=== PATIENT | female | born 1985 | race Caucasian/White ===

== ENCOUNTER 2016-10-20 06:06 | Emergency (ER) | payer OTHER ==
[2016-10-20 06:09] VITALS: O2SAT 99
[2016-10-20] MEDS ORDERED: MORPHINE SULFATE 2 MG INJ IV ONE (06:37)
[2016-10-20] MEDS ORDERED: Zofran 4 MG/2 ML VIAL IV ONE (06:38)
[2016-10-20] MEDS ORDERED: Sodium Chloride 0.9% 1000 ML 1,000 ML IV SCH (06:45)
--- NOTE | 2016-10-20 06:45 | ERPHSYRPT ---
- History of Present Illness Historian: patient Exam Limitations: no limitations Patient Subjective Stated Complaint: PT C/O EPIGASTRIC ABD PAIN, RATES 7/10. STATES SHES ALSO BEEN HAVING DIARRHEA AND HAS VOMITED AT HOME. Triage Nursing Assessment: PT ALERT AND ORIENTED, ANSWERS QUESTIONS APPROP. PT AMBULATORY WITH STEADY GAIT NOTED. SKIN PINK WARM AND DRY. ABD SOFT AND TENDER TO PALPATION. BOWEL SOUNDS PRESENT IN ALL 4 QUADS, PT REPORTS PASSING FLATUS. PT REPORTS NORMAL BM AT 1500 YESTERDAY THEN TOOK 2 DULCOLAX AT APPROX 2100 AND HAS HAD 4-5 DIARRHEA STOOLS SINCE. Timing/Duration: yesterday Activities at Onset: none Quality: sharpness Abdominal Pain Onset Location: epigastric, periumbilical Pain Radiation: epigastric Severity of Pain-Max: severe Severity of Pain-Current: moderate Modifying Factors: Improves With: nothing Associated Symptoms: diarrhea, nausea, vomiting Previous symptoms: no prior history Hx Tetanus, Diphtheria Vaccination/Date Given: Yes Hx Influenza Vaccination/Date Given: No Hx Pneumococcal Vaccination/Date Given: No Immunizations Up to Date: Yes <SURENDRA MICHELLE - Last Filed: 10/20/16 06:40> <SLAVA POWERS - Last Filed: 10/20/16 08:10> - History of Present Illness Time Seen by Provider: 10/20/16 06:30 Physician History: 31 y/o female comes to the ER with complaints of periumbilical and epigastric abdominal pain that started last night at 8 pm. Pt describes the pain as sharp, constant, as high as 8/10, currently 4/10, worst with sitting up and not relieved by dulcolax. Pt admits to having 1 episode of nausea and vomiting as well as 5 episodes of diarrhea. Pt has had issues with constipation in the past and has not had a good BM in 3 days. Last meal was at 6 pm last night from a steak house. Pt denies any fever, chills, chest pain, back pain, dyuria, polyuria or hematuria. (SURENDRA MICHELLE) Allergies/Adverse Reactions: No Known Drug Allergies Allergy (Unverified 10/20/16 06:21) Home Medications: No Home Meds 1 ea UD 10/20/16 [History] - Review of Systems Constitutional: No Fever, No Chills Eyes: No Symptoms Ears, Nose, & Throat: No Symptoms Respiratory: No Cough, No Dyspnea Cardiac: No Chest Pain, No Edema, No Syncope Abdominal/Gastrointestinal: Abdominal Pain, Nausea, Vomiting, Diarrhea Genitourinary Symptoms: No Dysuria, No Frequency, No Hematuria Musculoskeletal: No Back Pain, No Neck Pain Skin: No Rash Neurological: No Dizziness, No Focal Weakness, No Sensory Changes Psychological: No Symptoms Endocrine: No Symptoms All Other Systems: Reviewed and Negative <SURENDRA MICHELLE - Last Filed: 10/20/16 06:40> - Past Medical History Other Medical History: FADI ROBAN SYNDROME - Past Surgical History Past Surgical History: Yes Other Surgical History: CLEFT PALATE REPAIR AND CHIN IMPLANT - Social History Smoking Status: Never smoker Exposure to second hand smoke: No Drug Use: none Patient Lives Alone: No - Female History Hx Last Menstrual Period: CURRENT <MICHELLESURENDRA - Last Filed: 10/20/16 06:40> - Physical Exam General Appearance: mild distress, alert Eye Exam: PERRL/EOMI, eyes nml inspection Ears, Nose, Throat Exam: normal ENT inspection, pharynx normal, moist mucous membranes Neck Exam: normal inspection, non-tender, supple, full range of motion Respiratory Exam: normal breath sounds, lungs clear, No respiratory distress Cardiovascular Exam: regular rate/rhythm, normal heart sounds Gastrointestinal/Abdomen Exam: soft, normal bowel sounds, tenderness, distention , No mass Back Exam: normal inspection, normal range of motion, No CVA tenderness, No vertebral tenderness Extremity Exam: normal inspection, normal range of motion, pelvis stable Neurologic Exam: alert, oriented x 3, cooperative, normal mood/affect, nml cerebellar function, sensation nml, No motor deficits Skin Exam: normal color, warm, dry SpO2: 99 Oxygen Delivery: Room Air <VIVIANASURENDRA - Last Filed: 10/20/16 06:40> - CT Exams Abdomen/Pelvis CT Interpretation: Normal Appendix, No appendicitis, Other (addenitis) <SLAVA POWERS - Last Filed: 10/20/16 08:10> Ordered Tests: Active Orders 24 hr Category Date Time Status IV Insertion STAT Care 10/20/16 06:39 Active ABDOMEN AND PELVIS W CONTRAST [CT] Stat Exams 10/20/16 06:37 Taken AMYLASE Stat Lab 10/20/16 06:40 Completed CBC W DIFF Stat Lab 10/20/16 06:40 Completed CMP Stat Lab 10/20/16 06:40 Completed HCG,QUALITATIVE URINE Stat Lab 10/20/16 06:54 Completed LIPASE Stat Lab 10/20/16 06:40 Completed UA W/ MICROSCOPIC Stat Lab 10/20/16 06:54 Completed UA W/RFX UR CULTURE Stat Lab 10/20/16 06:54 Completed Medication Summary Generic Name Dose Route Start Last Admin Trade Name Freq PRN Reason Stop Dose Admin Sodium Chloride 1,000 mls @ 200 mls/hr 10/20/16 06:45 10/20/16 07:00 Sodium Chloride 0.9% 1000 Ml IV 11/19/16 06:44 200 mls/hr .Q5H MARIO Administration Discontinued Medications Generic Name Dose Route Start Last Admin Trade Name Freq PRN Reason Stop Dose Admin Sodium Chloride Confirm 10/20/16 06:58 Sodium Chloride 0.9% 1000 Ml Administered 10/20/16 06:59 Dose 1,000 mls @ ud .ROUTE .STK-MED ONE Morphine Sulfate 2 mg 10/20/16 06:37 10/20/16 07:00 Morphine Sulfate 2 Mg Inj IV 10/20/16 06:38 2 mg STAT ONE Administration Morphine Sulfate Confirm 10/20/16 06:58 Morphine Sulfate 2 Mg Inj Administered 10/20/16 06:59 Dose 2 mg .ROUTE .STK-MED ONE Ondansetron HCl 4 mg 10/20/16 06:38 10/20/16 07:00 Zofran 4 Mg/2 Ml Vial IV 10/20/16 06:39 4 mg STAT ONE Administration Ondansetron HCl Confirm 10/20/16 06:58 Zofran 4 Mg/2 Ml Vial Administered 10/20/16 06:59 Dose 4 mg .ROUTE .STK-MED ONE Lab/Rad Data: Laboratory Result Diagrams 10/20/16 06:40 10/20/16 06:40 Laboratory Results 10/20/16 10/20/16 10/20/16 Range/Units 06:54 06:54 06:40 WBC (4.0-10.5) K/mm3 RBC (4.1-5.4) M/mm3 Hgb (12.0-16.0) gm/dl Hct (35-47) % MCV (78-100) fl MCH (26-32) pg MCHC (32-36) g/dl RDW (11.5-14.0) % Plt Count (150-450) K/mm3 MPV (6-9.5) fl Gran % (36.0-66.0) % Lymphocytes % (24.0-44.0) % Monocytes % (0.0-12.0) % Eosinophils % (0.00-5.0) % Basophils % (0.0-0.4) % Basophils # (0-0.4) Sodium 139 (136-145) mEq/L Potassium 4.2 (3.5-5.1) mEq/L Chloride 104 (98-107) mEq/L Carbon Dioxide 23.0 (21-32) mEq/L Anion Gap 16.2 H (5-15) MEQ/L BUN 16 (9-20) mg/dL Creatinine 0.81 (0.55-1.30) mg/dl Estimated GFR > 60 ML/MIN Glucose 94 (70-110) MG/DL Calcium 9.1 (8.5-10.1) mg/dL Total Bilirubin 0.3 (0.2-1.0) mg/dL AST 17 (15-37) U/L ALT 16 (12-78) U/L Alkaline Phosphatase 101 (46-116) U/L Serum Total Protein 8.1 (6.4-8.2) gm/dL Albumin 3.9 (3.4-5.0) g/dL Amylase 48 (25-115) U/L Lipase 118 (73-393) U/L Ur Collection Type CLEAN CATCH Urine Color YELLOW (YELLOW) Urine Appearance CLEAR (CLEAR) Urine pH 6.5 (5-6) Ur Specific [place] 1.010 (1.005-1.025) Urine Protein NEGATIVE (Negative) Urine Glucose (UA) NEGATIVE (NEGATIVE) mg/dL Urine Ketones NEGATIVE (NEGATIVE) Urine Nitrite NEGATIVE (NEGATIVE) Urine Bilirubin NEGATIVE (NEGATIVE) Urine Urobilinogen 0.2 (0-1) mg/dL Urine WBC (Auto) NEGATIVE (NEGATIVE) Urine RBC (Auto) TRACE-INTACT (0-5) Sinan/ul Urine Microscopic RBC 0-2 (0-2) /HPF Urine Microscopic WBC 0-2 (0-5) /HPF Ur Epithelial Cells RARE (FEW) /HPF Urine Bacteria RARE (NEGATIVE) /HPF Urine HCG, Qual NEGATIVE (Negative) Specimen Received 10/20/16 0700 10/20/16 Range/Units 06:40 WBC 11.8 H (4.0-10.5) K/mm3 RBC 4.98 (4.1-5.4) M/mm3 Hgb 14.0 (12.0-16.0) gm/dl Hct 41.4 (35-47) % MCV 83.1 (78-100) fl MCH 28.1 (26-32) pg MCHC 33.8 (32-36) g/dl RDW 13.2 (11.5-14.0) % Plt Count 329 (150-450) K/mm3 MPV 10.8 H (6-9.5) fl Gran % 73.1 H (36.0-66.0) % Lymphocytes % 17.7 L (24.0-44.0) % Monocytes % 7.2 (0.0-12.0) % Eosinophils % 1.7 (0.00-5.0) % Basophils % 0.3 (0.0-0.4) % Basophils # 0.03 (0-0.4) Sodium (136-145) mEq/L Potassium (3.5-5.1) mEq/L Chloride (98-107) mEq/L Carbon Dioxide (21-32) mEq/L Anion Gap (5-15) MEQ/L BUN (9-20) mg/dL Creatinine (0.55-1.30) mg/dl Estimated GFR ML/MIN Glucose (70-110) MG/DL Calcium (8.5-10.1) mg/dL Total Bilirubin (0.2-1.0) mg/dL AST (15-37) U/L ALT (12-78) U/L Alkaline Phosphatase (46-116) U/L Serum Total Protein (6.4-8.2) gm/dL Albumin (3.4-5.0) g/dL Amylase (25-115) U/L Lipase (73-393) U/L Ur Collection Type Urine Color (YELLOW) Urine Appearance (CLEAR) Urine pH (5-6) Ur Specific [place] (1.005-1.025) Urine Protein (Negative) Urine Glucose (UA) (NEGATIVE) mg/dL Urine Ketones (NEGATIVE) Urine Nitrite (NEGATIVE) Urine Bilirubin (NEGATIVE) Urine Urobilinogen (0-1) mg/dL Urine WBC (Auto) (NEGATIVE) Urine RBC (Auto) (0-5) Sinan/ul Urine Microscopic RBC (0-2) /HPF Urine Microscopic WBC (0-5) /HPF Ur Epithelial Cells (FEW) /HPF Urine Bacteria (NEGATIVE) /HPF Urine HCG, Qual (Negative) Specimen Received - Progress Progress: improved Counseled pt/family regarding: lab results, diagnosis, rad results <SLAVA POWERS - Last Filed: 10/20/16 08:10> <SURENDRA MICHELLE - Last Filed: 10/20/16 06:40> - Departure Time of Disposition: 08:06 Departure Disposition: Home Critical Care Time: No <SLAVA POWERS - Last Filed: 10/20/16 08:10> - Departure Clinical Impression: Gastroenteritis Condition: Stable Additional Instructions: You have gastroenteritis caused by a virus. Take zofran 4 mg every 6 hrs as needed. Stay well hydrated. Follow up as needed. Prescriptions: Ondansetron [Zofran Odt] 4 mg PO Q6HPRN PRN #10 tab.rapdis PRN Reason: Nausea/Vomiting
[2016-10-20 06:46] LABS: BASOPHIL % 0.3 % (0.0-0.4); Eosinophil % 1.7 % (0.00-5.0); Granulocytes % 73.1 % (36.0-66.0); Lymphocytes % 17.7 % (24.0-44.0); Mean Cell Volume 83.1 fl (78-100); Mean Corpuscular Hemoglobin 28.1 pg (26-32); Mean Platelet Volume 10.8 fl (6-9.5); Monocytes % 7.2 % (0.0-12.0); Platelet Count 329 K/mm3 (150-450); Red Blood Count 4.98 M/mm3 (4.1-5.4); Red Cell Distribution Width 13.2 % (11.5-14.0); White Blood Count 11.8 K/mm3 (4.0-10.5)
[2016-10-20] MEDS ORDERED: MORPHINE SULFATE 2 MG INJ ONE (06:58)
[2016-10-20] MEDS ORDERED: Zofran 4 MG/2 ML VIAL ONE (06:58)
[2016-10-20] MEDS ORDERED: Sodium Chloride 0.9% 1000 ML 1,000 ML ONE (06:58)
[2016-10-20 07:01] LABS: Collection Type CLEAN CATCH
[2016-10-20 07:02] LABS: COMPLETE URINE MICROSCOPIC? YES; Ph 6.5 (5-6)
[2016-10-20 07:08] LABS: ALBUMIN 3.9 g/dL (3.4-5.0); ALKALINE PHOSPHATASE 101 U/L (46-116); ANION GAP 16.2 MEQ/L (5-15); BILIRUBIN,TOTAL 0.3 mg/dL (0.2-1.0); BLOOD UREA NITROGEN 16 mg/dL (9-20); CHLORIDE 104 mEq/L (98-107); Glucose 94 MG/DL (70-110); LIPASE 118 U/L (73-393); Potassium 4.2 mEq/L (3.5-5.1); SGOT/AST 17 U/L (15-37); SGPT/ALT 16 U/L (12-78); SODIUM 139 mEq/L (136-145); Total Protein 8.1 gm/dL (6.4-8.2)
[2016-10-20 07:09] LABS: ADD URINE CULTURE? NO (NO); Bacteria RARE /HPF (NEGATIVE); Epithelial Cells RARE /HPF (FEW); WBC 0-2 /HPF (0-5)
[2016-10-20 08:17] VITALS: BP 130/96; PULSE 76
--- NOTE | 2016-10-20 09:07 | XRAY ---
Indication: Diffuse abdominal pain. Multiple contiguous axial images obtained through the abdomen and pelvis using 80 cc Isovue 370 contrast only. Comparison: None Lung bases demonstrates minimal bibasilar dependent atelectasis and left base fibrosis/scarring. Heart is not enlarged. Noncontrasted stomach and bowel loops appear nonobstructed. Mild scattered fecal debris in the ascending and transverse colon. Appendix not seen. No free fluid/air. 1.5 cm left ovary cyst. Spleen is enlarged measuring 12.5 cm in greatest axial dimension. Subcentimeter hepatic hemangioma in the right lobe near the dome of the diaphragm. Remaining liver, gallbladder, pancreas, spleen, adrenal glands, kidneys, ureters, bladder, uterus, and aorta appear unremarkable. No pathologic retroperitoneal lymphadenopathy. Osseous structures intact. Impression: 1. Mild fecal stasis without obstruction. 2. Subcentimeter hepatic hemangioma, splenomegaly, and 1.5 cm left ovary cyst. 3. No acute intra-abdominal/pelvic abnormalities. Comment: Preliminary interpretation was made by [facility]. No critical discrepancy. CTDI 18.99
== END 2016-10-20 08:35 | disposition home or self-care (01) ==
LOC: ED 06:06
DX: K52.9 Noninfective gastroenteritis and colitis, unspecified (principal); R10.13 Epigastric pain; R10.9 Unspecified abdominal pain; R19.7 Diarrhea, unspecified; R11.2 Nausea with vomiting, unspecified
CPT/HCPCS: 36000; 36415; 74177; 80053; 81000; 82150; 83690; 84703; 85025; 96360; 96361; 96374; 96375; 99283; 99284; 99285; J2270; J2405

== ENCOUNTER 2017-01-29 10:28 | Emergency (ER) | payer OTHER ==
[2017-01-29] MEDS ORDERED: Adacel Vial IM ONE ×2 (11:47→11:59)
--- NOTE | 2017-01-29 11:47 | ERPHSYRPT ---
- History of Present Illness Time Seen by Provider: 01/29/17 11:15 Source: patient, family Exam Limitations: no limitations Patient Subjective Stated Complaint: Bit by own dog on back of left arm when attempting to break up her dogs from fighting Triage Nursing Assessment: Pt to er c/o dog bite to back of left arm. Pt states bit by own family dog states dog is up to date on shots. pt has bruising, swelling and 5 puncture wounds noted to arm. bleeding controled at this time Occurred: just prior to arrival Method of Injury: other (Dog bite puncture wounds) Quality: constant Severity of Pain-Max: mild Severity of Pain-Current: mild Extremities Pain Location: arm: left Modifying Factors: Improves With: movement Associated Symptoms: none Allergies/Adverse Reactions: No Known Drug Allergies Allergy (Verified 01/29/17 10:53) Home Medications: No Home Meds 1 ea UD 10/20/16 [History] Hx Tetanus, Diphtheria Vaccination/Date Given: Yes Hx Influenza Vaccination/Date Given: No Hx Pneumococcal Vaccination/Date Given: No - Review of Systems Constitutional: No Symptoms Eyes: No Symptoms Ears, Nose, & Throat: No Symptoms Respiratory: No Symptoms Cardiac: No Symptoms Abdominal/Gastrointestinal: No Symptoms Musculoskeletal: Other (Crush injury/dog bit to left upper arm) Neurological: No Symptoms Psychological: No Symptoms Endocrine: No Symptoms Hematologic/Lymphatic: No Symptoms Immunological/Allergic: No Symptoms - Past Medical History Pertinent Past Medical History: No Other Medical History: FADI ROBAN SYNDROME - Past Surgical History Past Surgical History: Yes Other Surgical History: CLEFT PALATE REPAIR AND CHIN IMPLANT - Social History Smoking Status: Never smoker Exposure to second hand smoke: No Drug Use: none Patient Lives Alone: No - Female History Hx Last Menstrual Period: 01/05/17 - Nursing Vital Signs Nursing Vital Signs: Initial Vital Signs Pulse Rate 88 Respiratory Rate 18 Blood Pressure [Right Arm] 139/94 Pain Intensity 5 - Physical Exam General Appearance: mild distress Eyes, Ears, Nose, Throat Exam: pharynx normal Neck Exam: normal inspection, non-tender, supple, full range of motion Cardiovascular/Respiratory Exam: chest non-tender, normal breath sounds, heart sounds normal Abdominal Exam: non-tender Shoulder Exam: normal inspection, non-tender, no evidence of injury, normal ROM Elbow/Forearm Exam: normal inspection, non-tender, no evidence of injury, normal ROM Wrist Exam: normal inspection, non-tender, no evidence of injury, normal ROM Hand Exam: normal inspection, non-tender, no evidence of injury, normal ROM Neuro/Tendon Exam: normal sensation, normal motor functions, normal tendon functions, no evidence tendon injury Mental Status Exam: alert, oriented x 3, cooperative Skin Exam: normal color, warm, other (puncture wounds to left UE of 1-2 cm diameter each. No bleeding. Mild ecchymosis and swelling.) Oxygen Delivery: Room Air - Course Nursing assessment & vital signs reviewed: Yes - Radiology Exams Humerus X-ray Interpretation: Teleradiologist Report (No FB), Negative Ordered Tests: Active Orders 24 hr Category Date Time Status Wound Care STAT Care 01/29/17 12:02 Active HUMERUS Stat Exams 01/29/17 11:36 Completed Medication Summary Discontinued Medications Generic Name Dose Route Start Last Admin Trade Name Freq PRN Reason Stop Dose Admin Bacitracin Confirm 01/29/17 12:00 Baciguent Packet Administered 01/29/17 12:01 Dose 1 gm .ROUTE .STK-MED ONE Bacitracin 0.9 gm 01/29/17 12:02 01/29/17 12:04 Baciguent Packet TP 01/29/17 12:03 0.9 gm STAT ONE Administration Diphtheria/Tetanus/Acell Pertussis 0.5 ml 01/29/17 11:47 01/29/17 12:01 Adacel Vial IM 01/29/17 11:48 0.5 ml .ONCE ONE Administration Diphtheria/Tetanus/Acell Pertussis Confirm 01/29/17 11:59 Adacel Vial Administered 01/29/17 12:00 Dose 0.5 ml IM .STK-MED ONE - Progress Progress: improved Will see patient in: office, other (PCP 1 week) Counseled pt/family regarding: diagnosis, need for follow-up, rad results - Departure Time of Disposition: 12:30 Departure Disposition: Home Clinical Impression: Dog bite of left arm Qualifiers: Encounter type: initial encounter Qualified Code(s): S41.152A - Open bite of left upper arm, initial encounter; W54.0XXA - Bitten by dog, initial encounter Condition: Stable Critical Care Time: No Instructions: Animal Bites Prescriptions: Naproxen [Naprosyn] 500 mg PO BID #20 tablet
[2017-01-29] MEDS ORDERED: BACIGUENT PACKET ONE (12:00)
[2017-01-29] MEDS ORDERED: BACIGUENT PACKET TP ONE (12:02)
--- NOTE | 2017-01-29 12:31 | XRAY ---
Indication: Dog bite. Comparison: None 2 views of the left humerus obtained. No bony, articular, or soft tissue abnormalities.
[2017-01-29 12:55] VITALS: BP 118/70; PULSE 70; O2SAT 100
== END 2017-01-29 12:55 | disposition home or self-care (01) ==
LOC: ED 10:28
DX: S41.152A Open bite of left upper arm, initial encounter (principal); W54.0XXA Bitten by dog, initial encounter
CPT/HCPCS: 73060; 90471; 90715; 99284; A9270-GY

== ENCOUNTER 2017-12-01 10:36 | Observation (INO) | payer OTHER ==
[2017-12-01 11:13] VITALS: BP 130/76; PULSE 103
--- NOTE | 2017-12-01 21:13 | XRAY ---
Indication: Decreased movement. Ultrasound biophysical profile study was performed. Comparison: None There is a single viable intrauterine currently in breech presentation with heart rate 144 BPM. Umbilical cord systolic/diastolic ratio is 3.2. Four-quadrant CASSIE is 3.6 cm, largest pocket 1.3 cm. 2 points given for breathing, movement, and tone. 0 point given for amniotic fluid volume. Impression: Total biophysical profile score is 6 out of 8. Comment: Preliminary report was given.
== END 2017-12-01 14:05 | disposition home or self-care (01) ==
LOC: OB 10:36
PROVIDERS: ADMIT Family Medicine; ATTEND Family Medicine
DX: Z34.03 Encounter for supervision of normal first pregnancy, third trimester (principal)
CPT/HCPCS: 76819; G0378

== ENCOUNTER 2017-12-06 10:19 | Observation (INO) | payer OTHER ==
--- NOTE | 2017-12-06 11:53 | XRAY ---
Indication: Evaluate CASSIE. Limited OB ultrasound performed to evaluate CASSIE. Four-quadrant CASSIE is 4.1 cm, previously 3.6 cm on December 01, 2017.
[2017-12-06 13:27] VITALS: BP 121/75; PULSE 100
== END 2017-12-06 13:25 | disposition home or self-care (01) ==
LOC: MED SURG 10:19
PROVIDERS: ADMIT Family Medicine; ATTEND Family Medicine
DX: Z34.03 Encounter for supervision of normal first pregnancy, third trimester (principal)
CPT/HCPCS: 76815; G0378; 59025

== ENCOUNTER 2017-12-11 00:31 | Inpatient (IN) | payer OTHER ==
[2017-12-11] MEDS ORDERED: Dulcolax 10 MG SUPP PR PRN (01:03)
[2017-12-11] MEDS ORDERED: CEFAZOLIN 2 GM-D5W BAG** 2 GM/50 ML ML IV SCH (01:30)
[2017-12-11 02:53] LABS: Hematocrit 36.7 % (35-47); Hemoglobin 12.1 gm/dl (12.0-16.0); Mean Cell Volume 83.6 fl (78-100); Mean Corpuscular Hemoglobin 27.6 pg (26-32); Mean Platelet Volume 11.7 fl (6-9.5); Platelet Count 287 K/mm3 (150-450); Red Blood Count 4.39 M/mm3 (4.1-5.4); Red Cell Distribution Width 14.9 % (11.5-14.0); White Blood Count 12.9 K/mm3 (4.0-10.5)
[2017-12-11 03:07] LABS: PTT 26.5 SECONDS (25.3-37.0)
[2017-12-11 03:16] LABS: Amphetamine,Urine NEGATIVE (NEGATIVE); Barbiturate,Urine NEGATIVE (NEGATIVE); Benzodiazepine,Urine NEGATIVE (NEGATIVE); Cocaine,Urine NEGATIVE (NEGATIVE); Methadone,Urine NEGATIVE (NEGATIVE); Opiate,Urine NEGATIVE (NEGATIVE); PCP,Urine NEGATIVE (NEGATIVE); THC,Urine NEGATIVE (NEGATIVE)
[2017-12-11 03:52] LABS: ABO TYPING O; Antibody Screen NEGATIVE (NEGATIVE); RH TYPING POSITIVE
[2017-12-11 04:03] LABS: Appearance CLEAR (CLEAR); Bilirubin NEGATIVE (NEGATIVE); Blood NEGATIVE Ery/ul (0-5); Glucose NEGATIVE (NEGATIVE); Ketones NEGATIVE (NEGATIVE); Leukocyte Esterase 2+ (NEGATIVE); Nitrite NEGATIVE (NEGATIVE); Protein,Urine Dip NEGATIVE (Negative); Urobilinogen NORMAL mg/dL (0-1)
[2017-12-11 04:04] LABS: Bacteria FEW /HPF (NEGATIVE); Epithelial Cells FEW /HPF (FEW)
[2017-12-11] MEDS ORDERED: Lactated Ringers 1,000 ML IV ONE ×2 (05:00→07:23)
[2017-12-11] MEDS ORDERED: Reglan 10 MG/2 ML IV SCH ×2 (05:00)
[2017-12-11] MEDS ORDERED: Sodium Chloride 0.9% 10 ML FLUSH Syringe IJ PRN (05:00)
[2017-12-11] MEDS ORDERED: Zofran 4 MG/2 ML VIAL IV PRN (05:00)
[2017-12-11] MEDS ORDERED: BICITRA 30 ML CUP PO SCH ×2 (05:00)
[2017-12-11] MEDS ORDERED: Pepcid 20 MG VIAL IV SCH ×2 (05:00)
[2017-12-11] MEDS ORDERED: Lactated Ringers 1,000 ML IV SCH (06:00)
[2017-12-11] MEDS ORDERED: KEFZOL 1 GM ONE (07:30)
[2017-12-11] MEDS ORDERED: TUCKS TP PRN (08:00)
[2017-12-11] MEDS ORDERED: DEMEROL 50 MG IV PRN (08:00)
[2017-12-11] MEDS ORDERED: Narcan 0.4 MG/ML IV PRN (08:00)
[2017-12-11] MEDS ORDERED: HOLD NARCOTIC ANALGESICS AND SEDATIVES X24 HR MC PRN (08:00)
[2017-12-11] MEDS ORDERED: TYLENOL EXTRA STRENGTH 500 MG PO PRN (08:00)
[2017-12-11] MEDS ORDERED: BENADRYL 50 MG/ML IV PRN (08:00)
[2017-12-11] MEDS ORDERED: CORTISONE 1% CREAM TP PRN (08:00)
[2017-12-11] MEDS ORDERED: Dermoplast Spray TP PRN (08:00)
[2017-12-11] MEDS ORDERED: MORPHINE SULFATE 2 MG INJ IV PRN (08:00)
[2017-12-11] MEDS ORDERED: Anucort-HC SUPPOSITORY PR PRN (08:00)
[2017-12-11] MEDS ORDERED: LANSINOH 40 GM TOP PRN (08:00)
[2017-12-11] MEDS ORDERED: CLARITIN 10 MG PO PRN (08:00)
[2017-12-11] MEDS ORDERED: Nubain 10 MG/ML IV PRN (08:00)
[2017-12-11] MEDS ORDERED: Phenergan 25 MG INJ IM PRN (08:00)
--- NOTE | 2017-12-11 09:34 | OP ---
SURGERY DATE/TIME: 12/11/2017 0710 PREOPERATIVE DIAGNOSES: 1) Breech presentation. 2) Oligohydramnios. POSTOPERATIVE DIAGNOSES: 1) Breech presentation. 2) Oligohydramnios. PROCEDURE: Primary section. SURGEON: Aron Lamar M.D. ANESTHESIA: Spinal by Lex Garner CRNA. ESTIMATED BLOOD LOSS: 400 cc. IV FLUIDS: 1600 cc of crystalloid. URINE OUTPUT: 50 cc clear straw-colored urine. SPECIMEN: Placenta was sent for pathology. DESCRIPTION OF PROCEDURE: After informed written consent was obtained, the patient was taken to the operating room. She underwent spinal anesthesia. She was prepped and draped in usual sterile fashion. After adequate level of anesthesia was assessed, a low transverse skin incision was made by knife and carried down to the subcutaneous fat to the level of the fascia. The fascia was nicked on both sides of the midline and extended in horizontal fashion. The superior free edge of the fascia was grasped with Isiah clamps and the underlying rectus muscles were dissected free. The same was repeated inferiorly. The peritoneal cavity was opened in horizontal fashion and then a bladder blade was inserted and bladder flap was created and reflected over the lower uterine segment. Horizontal uterine incision was made by knife and carried down to the level of the amniotic membranes which were carefully artificially ruptured. A viable female was delivered from the breech presentation with delayed cry. Oropharynx and nares were bulb suctioned free. The cord was clamped and cut. She was handed off to the awaiting nursery team. The uterus was exteriorized after the placenta was removed manually from the uterine cavity. The uterine cavity was wiped free of blood and clot with lap sponge. The uterine incision was closed with #1 chromic in a running locked fashion with good hemostasis and good closure. The posterior cul-de-sac was wiped free of blood and clot with moist lap sponge and then the uterus was returned to the peritoneal cavity. The lateral gutters were wiped free of blood and clot. Again, the uterine incision was inspected and noted to be hemostatic with good closure. Finally, the fascia was closed with 0 Vicryl in a running fashion with good closure and good hemostasis were achieved. The subcutaneous fat was irrigated with warm, sterile saline and and any areas of bleeding were cauterized with electrocautery. Finally, the skin layer was closed with 4-0 undyed Vicryl in a running subcuticular fashion. Steri-Strips and occlusive dressing were placed over the incision and the patient was transferred to the recovery room in excellent condition.
[2017-12-11 09:54] LABS: Appearance CLEAR (CLEAR); Bilirubin NEGATIVE (NEGATIVE); Blood 50 Ery/ul (0-5); Glucose NEGATIVE (NEGATIVE); Ketones NEGATIVE (NEGATIVE); Leukocyte Esterase TRACE (NEGATIVE); Nitrite NEGATIVE (NEGATIVE); Protein,Urine Dip TRACE (Negative); Urobilinogen NORMAL mg/dL (0-1)
[2017-12-11] MEDS: PERCOCET TABLET 5/325MG PO PRN ×2 (11:22→13:48)
[2017-12-11] MEDS ORDERED: Pitocin 10 UNITS/ML IV ONE (15:35)
[2017-12-11] MEDS ORDERED: Naropin 0.5% 30 ML VIAL IJ ONE (15:35)
[2017-12-11] MEDS ORDERED: Astramorph-Pf 5 MG/10 ML IV ONE (15:35)
[2017-12-11] MEDS: Dextrose 5%-Lr IV Solution 1000 ML 1,000 ML IV SCH (17:58)
[2017-12-11] MEDS: Colace 100 MG PO SCH (21:54)
[2017-12-11] MEDS ORDERED: Ambien 10 MG PO PRN (22:00)
[2017-12-11] MEDS: Mylicon 80MG PO PRN (22:30)
[2017-12-12] MEDS: Dextrose 5%-Lr IV Solution 1000 ML 1,000 ML IV SCH (01:26)
[2017-12-12] MEDS: PERCOCET TABLET 5/325MG PO PRN (05:20)
[2017-12-12 05:50] LABS: Hematocrit 24.5 % (35-47); Hemoglobin 7.8 gm/dl (12.0-16.0); Mean Corpuscular Hgb Concent. 31.8 g/dl (32-36); Mean Platelet Volume 10.9 fl (6-9.5); Platelet Count 206 K/mm3 (150-450); Red Blood Count 2.85 M/mm3 (4.1-5.4); Red Cell Distribution Width 14.8 % (11.5-14.0); White Blood Count 12.9 K/mm3 (4.0-10.5)
[2017-12-12 05:56] LABS: Mean Corpuscular Hemoglobin 27.3 pg (26-32)
[2017-12-12] MEDS: MOTRIN 400 MG PO PRN ×3 (07:41→21:57)
[2017-12-12] MEDS ORDERED: DEMEROL 75 MG IM PRN (08:00)
[2017-12-12] MEDS: Colace 100 MG PO SCH ×2 (08:58→22:09)
[2017-12-12] MEDS: FERREX 150 PO SCH (08:58)
[2017-12-12] MEDS: NORCO 5/325 MG PO PRN ×2 (12:13→23:51)
[2017-12-12] MEDS: Mylicon 80MG PO PRN ×2 (14:37→21:57)
--- NOTE | 2017-12-13 09:06 | PCM.DS ---
Discharge Summary Date of Admission: 12/11/17 00:31 Admitting Physician: STEPHANIE QUINTANILLA Consults: Consults on Case 12/11/17 00:59 Notify Anesthesia Provider Notify Anesthesia Provider PRN Notify Physician OF ADMISSION 12/11/17 01:04 Notify Physician Primary Care Provider: STEPHANIE QUINTANILLA Allergies Allergies No Known Drug Allergies Allergy (Verified 12/06/17 10:44) Hospital Summary - Hospital Course Hospital Course: 32yo had primary at 36wks for breech presentation with oligohydramnios. maternal history of Solomon Joce, baby was transferred to [facility] for left femur fracture and concern for anomalies. - Vitals & Intake/Output Vital Signs: Vital Signs Temperature 98.0 F 12/13/17 05:00 Pulse Rate 118 H 12/13/17 05:00 Respiratory Rate 20 12/13/17 05:00 Blood Pressure 138/72 12/13/17 05:00 O2 Sat by Pulse Oximetry 99 12/12/17 22:00 Intake & Output: Intake & Output 12/10/17 12/11/17 12/12/17 12/13/17 11:59 11:59 11:59 11:59 Intake Total 1000 4122 420 Output Total 1050 Balance 1000 3072 420 Weight 97.976 kg - Lab Result Diagrams: 12/12/17 05:43 Micro Results-Entire Visit: Microbiology 12/11/17 07:25 Urine Culture - Preliminary Urine, Catheterized NO GROWTH TO DATE Discharge Exam General Appearance: no apparent distress, alert Respiratory Exam: normal breath sounds, lungs clear, No respiratory distress Cardiovascular Exam: regular rate/rhythm, normal heart sounds Gastrointestinal/Abdomen Exam: soft, normal bowel sounds, other (incision c/d/i) Extremity Exam: normal inspection, normal range of motion Final Diagnosis/Problem List - Final Discharge Diagnosis/Problem (1) delivery delivered Current Visit: Yes Status: Acute - Discharge Disposition: Home, Self-Care Condition: Stable Prescriptions: New [place] Polysaccharides Complex [Ferrex 150] 150 mg PO DAILY #30 capsule Hydrocodone Bit/Acetaminophen [Hydrocodon-Acetaminophen 5-325] 1 each PO Q6H PRN PRN #28 tablet MDD 4 PRN Reason: Pain Continue 12/Iron/Folic/Dss/Om3 [Obtrex Dha Vitamin] 1 tab PO DAILY Follow up with: STEPHANIE QUINTANILLA MD [Primary Care Provider] - 1 Week
[2017-12-13] MEDS: Colace 100 MG PO SCH (11:34)
[2017-12-13] MEDS: NORCO 5/325 MG PO PRN (11:34)
[2017-12-13] MEDS: FERREX 150 PO SCH (11:34)
[2017-12-13 13:26] VITALS: BP 137/69; PULSE 114; O2SAT 97
== END 2017-12-13 14:30 | disposition home or self-care (01) | DRG 765 ==
LOC: OB 00:31
PROVIDERS: ADMIT Family Medicine; ATTEND Family Medicine
PROC: 10D00Z1 Extraction of Products of Conception, Low, Open Approach (ICD-10-PCS; principal; 2017-12-11)
DX: O32.1XX0 Maternal care for breech presentation, not applicable or unspecified (principal); O41.03X0 Oligohydramnios, third trimester, not applicable or unspecified; Z3A.36 36 weeks gestation of pregnancy; Z37.0 Single live birth
CPT/HCPCS: 36415; 62322; 64488; 76937; 76942; 80307; 81000; 81002; 85027; 85610; 85730; 86850; 86900; 86901; 87086; 88307; 94799; J0690; J2274; J2590; J2795; L0625; A9270-GY

== ENCOUNTER 2022-01-14 05:31 | Emergency (ER) | payer OTHER ==
--- NOTE | 2022-01-14 06:21 | ERPHSYRPT ---
- History of Present Illness Time Seen by Provider: 01/14/22 06:15 Source: patient Exam Limitations: no limitations Patient Subjective Stated Complaint: pt states "I can take pain but this is pain is getting worse." Triage Nursing Assessment: pt ambulated into the er; pt is axo x4; c/o RUE pain; pt states 7/10 pain to RUE; pt states pain starts in rt elbow and travels down to wrist; pt denies trauma or injury to arm; strong rt radial pulse; good cap refill to RUE; hypertensive; pt states she is 27 weeks Physician History: pt states "I can take pain but this is pain is getting worse." c/o RUE pain; pt states 7/10 pain to RUE; pt states pain starts in right elbow and travels down to wrist; pt denies trauma or injury to arm;. pt states she is 27 weeks Occurred: days ago (two days) Method of Injury: unknown Quality: constant Severity of Pain-Max: mild Severity of Pain-Current: mild Extremities Pain Location: elbow: right Modifying Factors: Improves With: nothing Associated Symptoms: none Body Map: 1 - pain Allergies/Adverse Reactions: No Known Drug Allergies Allergy (Verified 12/06/17 10:44) Home Medications: 12/Iron/Folic/Dss/Om3 [Obtrex Dha Vitamin] 1 tab PO DAILY 12/01/17 [History] Labetalol HCl 100 mg [Trandate 100 MG] 100 mg PO DAILY 01/14/22 [History] Hx Tetanus, Diphtheria Vaccination/Date Given: Yes Hx Influenza Vaccination/Date Given: No Hx Pneumococcal Vaccination/Date Given: No Travel Risk - International Travel Have you traveled outside of the country in past 3 weeks: No - Coronavirus Screening Are you exhibiting any of the following symptoms?: No Close contact with a COVID-19 positive Pt in past 14-21 Days: No - Vaccine Status Have you recieved a Covid-19 vaccination: Yes Hot Die Picker: Unknown - Vaccination Dates Dates if Unknown: 04/15 - Review of Systems Constitutional: No Symptoms Eyes: No Symptoms Ears, Nose, & Throat: No Symptoms Respiratory: No Symptoms Cardiac: No Symptoms Abdominal/Gastrointestinal: Other (~27 weeks ) Genitourinary Symptoms: No Symptoms Musculoskeletal: No Symptoms - Past Medical History Pertinent Past Medical History: Yes Cardiac History: Hypertension Other Medical History: FADI ROBAN SYNDROME - Past Surgical History Past Surgical History: Yes Neuro Surgical History: No Pertinent History Female Surgical History: Section Other Surgical History: CLEFT PALATE REPAIR AND CHIN IMPLANT - Social History Smoking Status: Never smoker Exposure to second hand smoke: No Drug Use: none Patient Lives Alone: No - Female History Hx Now: Yes (27 weeks) - Nursing Vital Signs Nursing Vital Signs: Initial Vital Signs Temperature 97.3 F 01/14/22 05:37 Pulse Rate 73 01/14/22 05:37 Respiratory Rate 16 01/14/22 05:37 Blood Pressure 143/91 01/14/22 05:37 O2 Sat by Pulse Oximetry 97 01/14/22 05:37 Pain Scale Pain Intensity 7 - Physical Exam General Appearance: no apparent distress Eyes, Ears, Nose, Throat Exam: normal ENT inspection Neck Exam: normal inspection Cardiovascular/Respiratory Exam: chest non-tender Abdominal Exam: non-tender Back Exam: normal inspection Shoulder Exam: normal inspection Elbow/Forearm Exam: limited ROM, soft tissue tenderness Wrist Exam: normal inspection Hand Exam: normal inspection Neuro/Tendon Exam: normal sensation, normal motor functions, normal tendon functions Mental Status Exam: alert, oriented x 3, cooperative SpO2: 97 - Course Nursing assessment & vital signs reviewed: Yes - Progress Progress: unchanged Counseled pt/family regarding: diagnosis, need for follow-up - Departure Departure Disposition: Home Clinical Impression: Bursitis of elbow Qualifiers: Elbow bursitis location: cubital bursitis Laterality: right Qualified Code(s): M70.31 - Other bursitis of elbow, right elbow Epicondylitis, lateral (tennis elbow) Qualifiers: Laterality: right Qualified Code(s): M77.11 - Lateral epicondylitis, right elbow Condition: Stable Critical Care Time: No Referrals: RENNY NICHOLS NP [Primary Care Provider] - Follow Up with PCP/3 days Instructions: Bursitis (DC), Lateral Epicondylitis (DC) Additional Instructions: Please use Voltaren gel every 3-4 hours followed by moist heat around right elbow area. Also do the right elbow exercise. Because of her we are deferring not to do a any radiological exam. Try to avoid any medication also. Use local application cream. Discharge/Care Plan WILFRIDO MOHAN was seen on 01/14/22 in the Emergency Room. The patient was counseled regarding Diagnosis,Lab results, Imaging studies, need for follow up and when to return to the Emergency Room. Prescriptions given: Discharge Note I have spoken with the patient and/or caregivers. I have explained the patient's condition, diagnosis and treatment plan based on the information available to me at this time. I have answered the patient's and/or caregiver's questions and addressed any concerns. The patient and/or caregivers have as good understanding of the patient's diagnosis, condition and treatment plan as can be expected at this point. The vital signs have been stable. The patient's condition is stable and appropriate for discharge from the emergency department. The patient will pursue further outpatient evaluation with the primary care physician or other designated or consulting physician as outlined in the discharge instructions. The patient and/or caregivers are agreeable to this plan of care and follow-up instructions have been explained in detail. The patient and/or caregivers have received these instruction. The patient/and or caregivers are aware that any significant change in condition or worsening of symptoms should prompt an immediate return to this or the closest emergency department or call 911. WILFRIDO MOHAN was seen on 01/14/22 n the Emergency Room. At that time you were treated for an emergent condition, during your visit Laboratory, Radiol ogy and/or other procedures may have been ordered. It is very important that you follow-up with your Primary Care Physician RENNY NICHOLS within the next 24-48 hours to review your Emergency Room visit and the final results of testing that was ordered. Some test results such as Urine Cultures, Blood Cultures, and other cultures if ordered will not be finalized for 24-48 hours. If you do not have a Primary Care Provider please call the medical records department at [phone] ext [phone] to obtain a copy of your results or you may sign into our patient portal to obtain these results by visiting us @ [email or web address] and completing the following steps: 1. Click on the Patient Portal link 2. Click the Patient Self Enrollment Link to complete the enrollment form and entering your 3. Once the enrollment form is completed you will receive an email with a temporary ID and password at the email address you provided. 4. Next choose a user name and password. Your user name must be at least 4 c haracters long and your password must be at least 4 characters long. 5. Choose a security question from the list and provide your answer to the question. If you already have signed into the Health Portal you may access your Health Care Information 18/03 by the following steps: 1. Login to our website @ [email or web address] 2. Enter your original user name and password. FAQS The [facility] Health Portal is an online tool that contains your Lab Results, Radiology Reports, Visit History, Discharge Instructions and Health Summary Lab and Radiology Results will not be available for 72 hours on the portal. The Portal is a secure site, passwords are encryted and URLs are re-written so they cannot be copied and pasted. You and authorized family members are the only ones who can access your Portal. Also there is a timeout feature that protects your information if you leave the Portal page open. If you have technical difficulty please use the Contact Us link on the page this will allow you to submit any questions you have regarding the Portal or you may contact the Medical Record Department at [phone].
[2022-01-14 06:25] VITALS: BP 115/65; PULSE 80; O2SAT 96
== END 2022-01-14 06:30 | disposition home or self-care (01) ==
LOC: ED 05:31
DX: M70.31 Other bursitis of elbow, right elbow (principal); M77.11 Lateral epicondylitis, right elbow; M79.601 Pain in right arm; I10 Essential (primary) hypertension; Z33.1 Pregnant state, incidental
CPT/HCPCS: 99283